=== PATIENT | female | born 1970 | race Caucasian/White ===

== ENCOUNTER 2019-04-15 13:57 | Emergency (ER) | payer OTHER ==
[2019-04-15] MEDS ORDERED: MECLIZINE HCL 12.5 MG TAB ONE (14:42)
[2019-04-15] MEDS ORDERED: NA CHLORIDE 0.9% 1,000 ML ONE (14:42)
[2019-04-15] MEDS ORDERED: PROMETHAZINE 25 MG/ML VIAL ONE (14:42)
--- NOTE | 2019-04-15 15:15 | RAD REPORT ---
EXAM DESCRIPTION: CT - Head Brain Wo Cont - 04/15/2019 2:43 pm CLINICAL HISTORY: Dizziness COMPARISON: None. TECHNIQUE: Computed axial tomography of the head was obtained. IV contrast was not requested. All CT scans are performed using dose optimization technique as appropriate and may include automated exposure control or mA/KV adjustment according to patient size. FINDINGS: An intracranial bleed is not seen . The ventricles are normal in caliber. No extra-axial fluid collection is noted. Fluid within the sinuses/ mastoids is not seen. IMPRESSION: No acute intracranial abnormality is seen. If patient's symptoms persist MRI of the bra in would be recommended.
[2019-04-15 15:28] LABS: Absolute Lymphocytes (CBC) 2.1 K/uL (0.7-4.9); Basophils % 0.2 % (0-1.3); Hematocrit 45.5 % (36.0-45.0); Lymphocytes % 28.6 % (15.3-44.8); RBC Red Blood Cell Count 5.05 M/uL (3.86-4.86)
[2019-04-15 15:39] LABS: Urine Blood NEGATIVE (NEG); Urine Glucose NEGATIVE (NEG); Urine Protein NEGATIVE (NEG); Urine pH 6.5 (5.0-7.0)
[2019-04-15 15:48] LABS: BUN Blood Urea Nitrogen 17 mg/dL (7-18); Bicarbonate 27 mmol/L (21-32); Glucose Level 93 mg/dL (74-106); Sodium Level 139 mmol/L (136-145)
[2019-04-15 15:56] LABS: Urine Bacteria <20 /HPF (<20); Urine Culture Reflex Order NOT NEEDED; Urine RBC <5 /HPF (NONE SEEN)
--- NOTE | 2019-04-15 16:41 | RAD REPORT ---
EXAM DESCRIPTION: Bette Angio04/15/2019 4:12 pm CLINICAL HISTORY: Numbness COMPARISON: None TECHNIQUE: 50 cc Isovue 370 was administered intravenously. 3D MIP reconstruction performed All CT scans are performed using dose optimization technique as appropriate and may include automated exposure control or mA/KV adjustment according to patient size. FINDINGS: The common carotid, internal carotid and external carotid arteries do not demonstrate a st enosis. The vertebral arteries are codominant. No dissection 20 millimeter left thyroid nodule IMPRESSION: Unremarkable examination of the arteries 20 millimeter left thyroid nodule. Nonemergent ultrasound recommended NASCET criteria used. Mild 0-49% stenosis Moderate 50-69% stenosis Severe 70-99% stenosis
--- NOTE | 2019-04-15 16:44 | RAD REPORT ---
EXAM DESCRIPTION: CTHead angio04/15/2019 4:14 pm CLINICAL HISTORY: Numbness COMPARISON: None TECHNIQUE: CT angiogram of the head was obtained. 3D MIPS reconstruction performed. All CT scans are performed using dose optimization technique as appropriate and may include automated exposure control or mA/KV adjustment according to patient size. FINDINGS: The basilar, internal carotid, anterior cerebral, middle cerebral and posterior cerebral a rteries are normal caliber. An aneurysm is not seen. A significant stenosis is not noted. IMPRESSION: Unremarkable CT angiogram head.
--- NOTE | 2019-04-15 16:53 | EDPHYS ---
Physician Documentation [facility] Name: Lianne Morgan Age: 48 yrs Sex: Female : 1970 Arrival Date: 04/15/2019 Time: 14:04 Bed 8 Private MD: ED Physician Sandor Owens HPI: 04/15 14:30 This 48 yrs old Female presents to ER via Ambulatory with complaints of rn Dizziness, Nausea. 14:31 The patient presents with dizziness, lightheadedness. Onset: The symptoms/episode rn began/occurred this morning. Modifying factors: The symptoms are alleviated by closing eyes, holding head still, the symptoms are aggravated by movement of head. Severity of symptoms: At their worst the symptoms were moderate in the emergency department the symptoms have improved. The patient has experienced a previous episode. Reports dizziness, began this morning, has had congestion for last 1.5 weeks, no head trauma. Has happened once before and got better, told had inner ear problem and vertigo. Reports dizziness when turns head, more so to the left, assoc with nausea. No chest pain/sob/abd pain. No other neurological complaints or symptoms. No syncope. Reports doctor recently went up on her synthroid. Also taking phentermine. Sister with AVM.. Historical: - Allergies: 14:07 PENICILLINS; sv - PMHx: 14:07 Hypothyroidism; DJD; scoliosis; sv - PSHx: 14:07 Ovarian cyst removed; back; Cholecystectomy; uterine ablation; sv - Immunization history:: Adult Immunizations up to date. - Social history:: Smoking status: Patient/guardian denies using tobacco. - Family history:: not pertinent. - Ebola Screening: : No symptoms or risks identified at this time. - Hospitalizations: : No recent hospitalization is reported. ROS: 14:31 Constitutional: Negative for fever, chills, and weight loss, Eyes: Negative for injury, rn pain, redness, and discharge, ENT: Negative for injury, pain, and discharge, Neck: Negative for injury, pain, and swelling, Cardiovascular: Negative for chest pain, palpitations, and edema, Respiratory: Negative for shortness of breath, cough, wheezing, and pleuritic chest pain, Abdomen/GI: Negative for abdominal pain, diarrhea, and constipation, MS/Extremity: Negative for injury and deformity, Skin: Negative for injury, rash, and discoloration, Neuro: Negative for numbness, tingling, and seizure. Exam: 14:31 Constitutional: This is a well developed, well nourished patient who is awake, alert, rn appears anxious Head/Face: Normocephalic, atraumatic. Eyes: Pupils equal round and reactive to light, extra-ocular motions intact. Lids and lashes normal. Conjunctiva and sclera are non-icteric and not injected. Cornea within normal limits. Periorbital areas with no swelling, redness, or edema. ENT: MMM Cardiovascular: Regular rate and rhythm. No pulse deficits. Respiratory: Speaking full sentences. No increased work of breathing, no retractions or nasal flaring. Skin: Warm, dry MS/ Extremity: Pulses equal, no cyanosis. Neurovascular intact. Full, normal range of motion. Equal circumference. Neuro: Awake and alert, GCS 15, oriented to person, place, time, and situation. Cranial nerves II-XII grossly intact. Motor strength 5/5 in all extremities. Sensory grossly intact. Cerebellar exam normal. Normal gait. 15:17 ECG was reviewed by the Attending Physician. rn Vital Signs: 14:07 BP 141 / 100; Pulse 66; Resp 16; Temp 97.7; Pulse Ox 100% ; Weight 80.74 kg; Height 5 sv ft. 2 in. (157.48 cm); 15:07 BP 135 / 101; Pulse 78; Resp 16; Pulse Ox 100% ; bp 16:24 BP 122 / 82; Pulse 74; Resp 16; Pulse Ox 98% ; bp 17:03 BP 115 / 77; Pulse 69; Resp 14; Temp 97.8; Pulse Ox 100% ; bp 14:07 Body Mass Index 32.56 (80.74 kg, 157.48 cm) sv MDM: 14:10 Patient medically screened. rn 16:51 Differential diagnosis: cardiac arrhythmia, generalized weakness, hypovolemia, rn idiopathic dizziness, vertigo. Data reviewed: vital signs, nurses notes, lab test result(s), EKG, radiologic studies, CT scan, and as a result, I will discharge patient. Counseling: I had a detailed discussion with the patient and/or guardian regarding: the historical points, exam findings, and any diagnostic results supporting the discharge/admit diagnosis, lab results, radiology results, the need for outpatient follow up, to return to the emergency department if symptoms worsen or persist or if there are any questions or concerns that arise at home. Response to treatment: the patient's symptoms have markedly improved after treatment, and as a result, I will discharge patient. Special discussion: I discussed with the patient/guardian in detail that at this point there is no indication for admission to the hospital. It is understood, however, that if the symptoms persist or worsen the patient needs to return immediately for re-evaluation. Based on the history and exam findings, there is no indication for further emergent testing or inpatient evaluation. I discussed with the patient/guardian the need to see the neurologist for further evaluation of the symptoms. ED course: Pt feels better, ambulatory, neg ct head and ct angio head/neck. Will dc home with meclizine/zofran prn and neuro f/u. Had long discussion regarding etiologies of vertigo and how we treat. Also recommended not driving until cleared by neuro. . 04/15 14:30 Order name: CBC with Diff; Complete Time: 15:37 rn 04/15 14:30 Order name: Basic Metabolic Panel; Complete Time: 15:59 rn 04/15 14:30 Order name: Urine Microscopic Only; Complete Time: 15:59 rn 04/15 14:30 Order name: TSH; Complete Time: 15:59 rn 04/15 14:30 Order name: T4 Free; Complete Time: 15:59 rn 04/15 15:30 Order name: Urine Dipstick--Ancillary (enter results); Complete Time: 15:59 mt 04/15 14:30 Order name: CT Head Brain wo Cont; Complete Time: 15:37 rn 04/15 14:30 Order name: IV Start; Complete Time: 15:13 rn 04/15 14:30 Order name: EKG; Complete Time: 14:30 rn 04/15 15:17 Order name: CT Head Angio; Complete Time: 16:50 rn 04/15 15:17 Order name: CT Neck Angio; Complete Time: 16:50 rn 04/15 14:30 Order name: Urine Dipstick-Ancillary (obtain specimen); Complete Time: 15:13 rn 04/15 14:30 Order name: EKG - Nurse/Tech; Complete Time: 15:13 rn EC:17 Rate is 57 beats/min. Rhythm is regular. QRS [place] is Normal. FL interval is normal. QRS rn interval is normal. QT interval is normal. No Q waves. T waves are Normal. No ST changes noted. Clinical impression: Sinus bradycardia. Interpreted by me. Reviewed by me. Administered Medications: 15:00 Drug: NS 0.9% 1000 ml Route: IV; Rate: 1000 ml; Site: right forearm; bp 17:11 Follow up: IV Status: Completed infusion; IV Intake: 1000ml bp 15:00 Drug: Meclizine 50 mg Route: PO; bp 15:34 Follow up: Response: No adverse reaction bp 15:00 Drug: Phenergan 12.5 mg Route: IVP; Site: right forearm; bp 15:34 Follow up: Response: Nausea is decreased bp Disposition: 04/15/19 16:53 Discharged to Home. Impression: Vertigo, Dehydration. - Condition is Stable. - Discharge Instructions: Dehydration, Adult, Vertigo. - Prescriptions for Zofran ODT 4 mg Oral tablet,disintegrating - place 1 tablet by TRANSLINGUAL route every 8 hours As needed; 20 tablet. Meclizine 25 mg Oral Tablet - take 1 tablet by ORAL route every 8 hours As needed; 30 tablet. - Medication Reconciliation Form, Thank You Letter, Antibiotic Education, Prescription Opioid Use form. - Follow up: Private Physician; When: As needed; Reason: Recheck today's complaints, Re-evaluation by your physician. - Problem is new. - Symptoms have improved. Signatures: Dispatcher [employer] EDMS Jennifer Tyler RN RN sv Nieto, Roman, MD MD rn Peltier, Brian, RN RN bp Corrections: (The following items were deleted from the chart) 17:11 16:53 04/15/2019 16:53 Discharged to Home. Impression: Vertigo; Dehydration. Condition bp is Stable. Forms are Medication Reconciliation Form, Thank You Letter, Antibiotic Education, Prescription Opioid Use. Follow up: Private Physician; When: As needed; Reason: Recheck today's complaints, Re-evaluation by your physician. Problem is new. Symptoms have improved. rn
--- NOTE | 2019-04-15 16:53 | ER ---
Nurse's Notes [facility] Name: Lianne Morgan Age: 48 yrs Sex: Female : 1970 Arrival Date: 04/15/2019 Time: 14:04 Bed 8 Private MD: Diagnosis: Vertigo;Dehydration Presentation: 04/15 14:04 Presenting complaint: Patient states: congestion x 1.5 weeks, dizziness/nausea/upper sv lip numbness/left sided facial numbness started today. c/o left sided head pain/ear/jaw pain. Transition of care: patient was not received from another setting of care. Onset of symptoms is unknown. Risk Assessment: Do you want to hurt yourself or someone else? Patient reports no desire to harm self or others. Care prior to arrival: None. 14:04 Method Of Arrival: Ambulatory sv 14:04 Acuity: ALMAS 3 sv 17:10 Initial Sepsis Screen: Does the patient meet any 2 criteria? No. Patient's initial bp sepsis screen is negative. Does the patient have a suspected source of infection? No. Patient's initial sepsis screen is negative. Triage Assessment: 14:27 General: Appears in no apparent distress. comfortable, Behavior is cooperative, bp appropriate for age, anxious. Pain: Complains of pain in face. EENT: Reports pain in left ear and left side of head. Neuro: No deficits noted. Cardiovascular: No deficits noted. Respiratory: No deficits noted. GI: No signs and/or symptoms were reported involving the gastrointestinal system. : No signs and/or symptoms were reported regarding the genitourinary system. Derm: No deficits noted. Musculoskeletal: No deficits noted. Historical: - Allergies: 14:07 PENICILLINS; sv - PMHx: 14:07 Hypothyroidism; DJD; scoliosis; sv - PSHx: 14:07 Ovarian cyst removed; back; Cholecystectomy; uterine ablation; sv - Immunization history:: Adult Immunizations up to date. - Social history:: Smoking status: Patient/guardian denies using tobacco. - Family history:: not pertinent. - Ebola Screening: : No symptoms or risks identified at this time. - Hospitalizations: : No recent hospitalization is reported. Screenin:29 Abuse screen: Denies threats or abuse. Denies injuries from another. Nutritional bp screening: No deficits noted. Tuberculosis screening: No symptoms or risk factors identified. Fall Risk None identified. Assessment: 14:28 General: SEE TRIAGE NOTE. bp 16:24 Reassessment: PT RETURNED FROM [facility]. bp 17:08 Reassessment: PT D/C HOME AMBULATORY WITH FAMILY, DX WITH VERTIGO AND DEHYDRATION. bp Vital Signs: 14:07 BP 141 / 100; Pulse 66; Resp 16; Temp 97.7; Pulse Ox 100% ; Weight 80.74 kg; Height 5 sv ft. 2 in. (157.48 cm); 15:07 BP 135 / 101; Pulse 78; Resp 16; Pulse Ox 100% ; bp 16:24 BP 122 / 82; Pulse 74; Resp 16; Pulse Ox 98% ; bp 17:03 BP 115 / 77; Pulse 69; Resp 14; Temp 97.8; Pulse Ox 100% ; bp 14:07 Body Mass Index 32.56 (80.74 kg, 157.48 cm) sv ED Course: 14:04 Patient arrived in ED. mr 14:05 Triage completed. sv 14:08 Arm band placed on. sv 14:10 Sandor Owens MD is Attending Physician. rn 14:26 Ruslan Velazco, STANLEY is Primary Nurse. bp 14:29 Patient has correct armband on for positive identification. Bed in low position. Call bp light in reach. Side rails up X2. Adult w/ patient. 14:43 CT completed. Patient tolerated procedure well. Patient moved back from CT. bq 14:44 CT Head Brain wo Cont In Process Unspecified. EDMS 15:00 Inserted saline lock: 22 gauge in right forearm, using aseptic technique. Blood bp collected. 15:10 EKG done, by ED staff, reviewed by Sandor Owens MD. jb1 15:23 Radiology exam delayed due to lab results not completed at this time. (BUN/Creatinine). kw1 16:00 IV discontinued, intact, bleeding controlled, Pressure dressing applied. bp 16:05 Inserted saline lock: 20 gauge in left antecubital area, using aseptic technique. bp 16:12 CT Head Angio In Process Unspecified. EDMS 16:12 CT Neck Angio In Process Unspecified. EDMS 16:12 CT completed. Patient tolerated procedure well. Patient moved back from CT. mw3 17:08 No provider procedures requiring assistance completed. bp 17:09 IV discontinued, intact, bleeding controlled, No redness/swelling at site. Pressure bp dressing applied. Administered Medications: 15:00 Drug: NS 0.9% 1000 ml Route: IV; Rate: 1000 ml; Site: right forearm; bp 17:11 Follow up: IV Status: Completed infusion; IV Intake: 1000ml bp 15:00 Drug: Meclizine 50 mg Route: PO; bp 15:34 Follow up: Response: No adverse reaction bp 15:00 Drug: Phenergan 12.5 mg Route: IVP; Site: right forearm; bp 15:34 Follow up: Response: Nausea is decreased bp Intake: 17:11 IV: 1000ml; Total: 1000ml. bp Outcome: 16:53 Discharge ordered by MD. rn 17:09 Discharged to home ambulatory, with family. bp 17:09 Condition: stable 17:09 Discharge instructions given to patient, Instructed on discharge instructions, follow up and referral plans. medication usage, Demonstrated understanding of instructions, follow-up care, medications, Prescriptions given X 2. 17:11 Patient left the ED. bp Signatures: Dispatcher [employer] EDMS Julio C Bryan jb1 Jennifer Tyler RN RN sv Rivera, Mary mr Kia Pena Roman, MD MD rn Peltier, Brian, RN RN bp Wilhelm, Kimberly kw1 Marian Rios mw3 Corrections: (The following items were deleted from the chart) 14:09 14:04 Presenting complaint: Patient states: congestion x 1.5 weeks, sv dizziness/nausea/lips numb started today. c/o left sided head pain/ear/jaw pain. sv
[2019-04-15 17:24] VITALS: BP 115/77; TEMP 97.8; O2SAT 100
--- NOTE | 2019-04-16 19:54 | EKG ---
Test Date: 2019-04-15 Test Time: 15:14:35 Machine Scallop Cutter: DAT MEASUREMENT RESULTS: Intervals: Rate: 57 TN: 168 QRSD: 92 QT: 400 QTc: 389 [place]: P: 62 TN: 168 QRS: 76 T: 72 INTERPRETIVE STATEMENTS: Sinus bradycardia Otherwise normal ECG No previous ECG available for comparison Electronically Signed On 04-16-19 19:52:56 CDT by David Barraza
== END 2019-04-15 17:11 | disposition home or self-care (01) ==
LOC: ER 13:57
DX: R42 Dizziness and giddiness (principal); E86.0 Dehydration; Z88.0 Allergy status to penicillin
CPT/HCPCS: 96361; 93005; 85025; 80048; 36415; 84443; 84439; 70450; 70496; 70498; 96374; 99284; Q9967; J2550; J8597; J7030; 81003; 81015